=== PATIENT | male | born 1960 | race Native Hawaiian/Other Pacific Islander ===

== ENCOUNTER 2017-04-06 09:49 | Outpatient (CLI) | payer OTHER ==
[~2017-04-06 09:49] MED LIST: CLOPIDOGREL75 MG PO; HYDR2TAB12 PO; METOPROLOL25 M1 OR; ONDA4TAB3 PO; PRINIVIL5 MG OR; RANITIDINE 150150 MG PO; WELLBUTRIN75 MG PO
== END 2017-04-06 11:00 | disposition home or self-care (01) ==
LOC: MRI 09:49
DX: M54.5 Low back pain (principal)

== ENCOUNTER 2017-05-28 19:53 | Emergency (ER) | payer OTHER ==
[~2017-05-28] VITALS: Ht 180.3 cm; Wt 113.4 kg
[2017-05-28] MEDS ORDERED: LIPITOR40 MG PO (20:15)
[2017-05-28] MEDS ORDERED: CLOP75TA2 PO (20:15)
[2017-05-28] MEDS ORDERED: LEVO-T75 MCG PO (20:16)
[2017-05-28 20:17] LABS: PLATELET COUNT 256 K/uL (142-355)
[2017-05-28] MEDS ORDERED: ALLERGY10 MG PO (20:17)
[2017-05-28 20:30] LABS: POTASSIUM 3.7 mmol/L (3.6-5.2); SODIUM 136 mmol/L (136-145)
[2017-05-28 20:45] LABS: PARTIAL THROMBOPLASTIN TIME 24.6 SECONDS (24.5-33.6)
[2017-05-28 21:36] VITALS: BP 128/71; TEMP 98.2
== END 2017-05-28 21:37 | disposition home or self-care (01) ==
LOC: ED 19:53
DX: K21.9 Gastro-esophageal reflux disease without esophagitis (principal); R07.89 Other chest pain; K29.60 Other gastritis without bleeding; B96.81 Helicobacter pylori [H. pylori] as the cause of diseases classified elsewhere
CPT/HCPCS: 36415; 80053; 82550; 82553; 84484; 85027; 85610; 85730; 86318; 93005; 99283

== ENCOUNTER 2017-07-22 08:34 | Outpatient (CLI) | payer OTHER ==
[~2017-07-22 08:34] MED LIST changes: +ALLERGY10 MG PO; +CLOP75TA2 PO; +LEVO-T75 MCG PO; +LIPITOR40 MG PO
== END 2017-07-22 19:09 | disposition home or self-care (01) ==
LOC: US 08:34
DX: I73.89 Other specified peripheral vascular diseases (principal)

== ENCOUNTER 2017-10-13 07:19 | Outpatient (CLI) | payer OTHER ==
[~2017-10-13] VITALS: Ht 152.4 cm; Wt 5.0 kg
== END 2017-10-13 08:30 | disposition home or self-care (01) ==
LOC: NM 07:19
DX: R55 Syncope and collapse (principal); R05 Cough
CPT/HCPCS: 93005; A9500; J2785

== ENCOUNTER 2018-05-09 08:38 | Day surgery (SDC) | payer OTHER ==
[2018-05-09 09:32] LABS: PLATELET COUNT 312 K/uL (142-355)
[2018-05-09 09:46] LABS: POTASSIUM 4.2 mmol/L (3.6-5.2)
[2018-05-09 09:55] LABS: PARTIAL THROMBOPLASTIN TIME 25.6 SECONDS (24.5-33.6)
== END 2018-05-09 16:20 | disposition home or self-care (01) ==
LOC: OR 08:38
PROVIDERS: Student in an Organized Health Care Education/Training Program
DX: Z53.8 Procedure and treatment not carried out for other reasons (principal); K43.2 Incisional hernia without obstruction or gangrene; R10.84 Generalized abdominal pain
CPT/HCPCS: 80053; 85027; 85610; 85730; 93005; J0690; J1100; J1170; J2765; J3010; Q9963

== ENCOUNTER 2018-05-16 07:43 | Day surgery (SDC) | payer OTHER | END 2018-05-16 10:20 | disposition home or self-care (01) | LOC: OR 07:43 | PROC: 0DB48ZZ Excision of Esophagogastric Junction, Via Natural or Artificial Opening Endoscopic (ICD-10-PCS; principal; 2018-05-16) | PROC: 0DB68ZZ Excision of Stomach, Via Natural or Artificial Opening Endoscopic (ICD-10-PCS; 2018-05-16) | PROC: 0DB78ZZ Excision of Stomach, Pylorus, Via Natural or Artificial Opening Endoscopic (ICD-10-PCS; 2018-05-16) | DX: K44.9 Diaphragmatic hernia without obstruction or gangrene (principal); K29.40 Chronic atrophic gastritis without bleeding; K29.80 Duodenitis without bleeding; K21.0 Gastro-esophageal reflux disease with esophagitis; R13.19 Other dysphagia | CPT/HCPCS: J2001; J2250; J2405; J2704 ==

== ENCOUNTER 2018-12-19 07:31 | Day surgery (SDC) | payer OTHER ==
[2018-12-19 08:34] LABS: PLATELET COUNT 317 K/uL (142-355)
[2018-12-19 08:39] LABS: POTASSIUM 3.5 mmol/L (3.6-5.2)
== END 2018-12-19 10:47 | disposition home or self-care (01) ==
LOC: OR 07:31
PROVIDERS: Student in an Organized Health Care Education/Training Program
PROC: 0DBL8ZZ Excision of Transverse Colon, Via Natural or Artificial Opening Endoscopic (ICD-10-PCS; principal; 2018-12-19)
PROC: 0DBM8ZZ Excision of Descending Colon, Via Natural or Artificial Opening Endoscopic (ICD-10-PCS; 2018-12-19)
PROC: 0DBN8ZZ Excision of Sigmoid Colon, Via Natural or Artificial Opening Endoscopic (ICD-10-PCS; 2018-12-19)
DX: D12.4 Benign neoplasm of descending colon (principal); D12.5 Benign neoplasm of sigmoid colon; D12.3 Benign neoplasm of transverse colon; K64.8 Other hemorrhoids; Z12.11 Encounter for screening for malignant neoplasm of colon
CPT/HCPCS: 80053; 85027; J2001; J2250; J2704; J3010; J3490

== ENCOUNTER 2019-03-01 07:36 | Outpatient (CLI) | payer OTHER | END 2019-03-01 19:47 | disposition home or self-care (01) | LOC: MRI 07:36 | DX: M54.5 Low back pain (principal); M54.17 Radiculopathy, lumbosacral region ==

== ENCOUNTER 2019-05-12 13:38 | Outpatient (CLI) | payer OTHER | END 2019-05-12 14:08 | disposition short-term general hospital (02) | LOC: AMB 13:38 | DX: R07.89 Other chest pain (principal); R06.09 Other forms of dyspnea | CPT/HCPCS: A0425; A0427 ==

== ENCOUNTER 2019-06-08 08:01 | Outpatient (CLI) | payer OTHER | END 2019-06-08 23:40 | disposition home or self-care (01) | LOC: MRI 08:01 | DX: M25.551 Pain in right hip (principal) ==

== ENCOUNTER 2019-08-14 09:17 | Day surgery (SDC) | payer OTHER ==
[~2019-08-14] VITALS: Ht 180.3 cm; Wt 88.5 kg
== END 2019-08-14 10:49 | disposition home or self-care (01) ==
LOC: OR 09:17
PROC: 3E0U3BZ Introduction of Anesthetic Agent into Joints, Percutaneous Approach (ICD-10-PCS; principal; 2019-08-14)
PROC: 3E0U33Z Introduction of Anti-inflammatory into Joints, Percutaneous Approach (ICD-10-PCS; 2019-08-14)
PROC: BQ10YZZ Fluoroscopy of Right Hip using Other Contrast (ICD-10-PCS; 2019-08-14)
DX: M16.11 Unilateral primary osteoarthritis, right hip (principal)
CPT/HCPCS: J1020; J2001; J3490

== ENCOUNTER 2021-11-11 11:09 | Outpatient (CLI) | payer OTHER | END 2021-11-11 18:56 | disposition home or self-care (01) | LOC: RAD 11:09 | PROVIDERS: ATTEND Nurse Practitioner Primary Care | DX: M25.551 Pain in right hip (principal); M54.59 Other low back pain ==

== ENCOUNTER 2022-05-28 10:49 | Outpatient (CLI) | payer OTHER | END 2022-05-28 21:36 | disposition home or self-care (01) | LOC: CT 10:49 | PROVIDERS: ATTEND Nurse Practitioner Family | DX: F17.210 Nicotine dependence, cigarettes, uncomplicated (principal) ==

== ENCOUNTER 2023-01-10 12:59 | Outpatient (CLI) | payer OTHER | END 2023-01-10 19:21 | disposition home or self-care (01) | LOC: RAD 12:59 | PROVIDERS: ATTEND Nurse Practitioner Family | DX: Z13.820 Encounter for screening for osteoporosis (principal); M85.88 Other specified disorders of bone density and structure, other site ==

== ENCOUNTER 2023-01-26 09:09 | Outpatient (CLI) | payer OTHER | END 2023-01-26 19:18 | disposition home or self-care (01) | LOC: RAD 09:09 | PROVIDERS: ATTEND Physician Assistant | DX: M54.59 Other low back pain (principal) ==

== ENCOUNTER 2023-02-23 09:38 | Outpatient (CLI) | payer OTHER | END 2023-02-23 18:54 | disposition home or self-care (01) | LOC: MRI 09:38 | PROVIDERS: ATTEND Physician Assistant | DX: M54.59 Other low back pain (principal) ==